=== PATIENT | male | born 1995 | race Caucasian/White ===

== ENCOUNTER → 2018-08-24 | Outpatient (CLI) | payer OTHER ==
--- NOTE | 2018-08-24 09:15 | RADIOLOGY IMAGING REPORT ---
FACILITY: [facility] PATIENT NAME: Brooks Rdz : 1995 MR: [id number] V: [id number] EXAM DATE: ORDERING PHYSICIAN: CHRISTI CABAN TECHNOLOGIST: Location: [facility] [place] Patient: Brooks Rdz : 1995 Visit/Account:[id number] Date of Sevice: 08/24/2018 L SPINE W/O CONTRAST COMPARISON: None. HISTORY: Low back pain with failure to improve with therapy, medications. Back pain radiating to th e right thigh just distal to the knee. Positive SLR on the right. TECHNIQUE: Noncontrast axial and sagittal MRI of the lumbar spine. CONTRAST: None. FINDINGS: PARASPINAL: Unremarkable. ALIGNMENT: Normal lordosis. No subluxation. BONES: No fracture, pars defect, or osseous lesion. Normal marrow signal. Intact visualized sacroil iac joints. Unremarkable visualized upper sacrum and pelvis. CORD/CAUDA EQUINA: Normal caliber, contour, and signal intensity. The conus medullaris resides at t he upper margin of L1 based on sagittal series. It was not imaged in the axial plane. OTHER: Negative. LUMBAR DISC LEVELS: L1-L2: No significant disc/facet abnormality, spinal stenosis, or foraminal stenosis. L2-L3: No significant disc/facet abnormality, spinal stenosis, or foraminal stenosis. L3-L4: No significant disc/facet abnormality, spinal stenosis, or foraminal stenosis. L4-L5: No significant disc/facet abnormality, spinal stenosis, or foraminal stenosis. L5-S1: No significant disc/facet abnormality, spinal stenosis, or foraminal stenosis. IMPRESSION: Unremarkable MRI of the lumbar spine with no cause for symptoms identified. Report Dictated By: Monster Zapata at 08/24/2018 9:05 AM Report E-Signed By: Monster Zapata at 08/24/2018 9:10 AM WSN:[email or web address]
== END ==
LOC: MRI 07:58
PROVIDERS: ATTEND Emergency Medicine Sports Medicine
DX: M54.5 Low back pain (principal); M79.651 Pain in right thigh
CPT/HCPCS: 72148